=== PATIENT | female | born 1950 | race Hispanic/Latino ===

== ENCOUNTER → 2022-10-29 | Outpatient (CLI) | payer MEDICARE | END | disposition home or self-care (01) | LOC: RAH 12:18 | PROVIDERS: ATTEND Family Medicine | DX: M19.072 Primary osteoarthritis, left ankle and foot (principal); M47.815 Spondylosis without myelopathy or radiculopathy, thoracolumbar region; M77.32 Calcaneal spur, left foot; M25.772 Osteophyte, left ankle; I70.0 Atherosclerosis of aorta; M25.572 Pain in left ankle and joints of left foot; M25.472 Effusion, left ankle; J45.20 Mild intermittent asthma, uncomplicated | CPT/HCPCS: 71046; 73600 ==

== ENCOUNTER → 2024-04-09 | Outpatient (CLI) | payer MEDICARE ==
[~2024-04-09] MED LIST: IOHEXOL 350 MG/ML 100ML INFUS..BTL IV ONE
== END | disposition home or self-care (01) ==
LOC: RAH 04-08 09:53
PROVIDERS: ATTEND Family Medicine
DX: Z13.6 Encounter for screening for cardiovascular disorders (principal); N28.1 Cyst of kidney, acquired; I70.0 Atherosclerosis of aorta; K44.9 Diaphragmatic hernia without obstruction or gangrene; R93.89 Abnormal findings on diagnostic imaging of other specified body structures; Z90.49 Acquired absence of other specified parts of digestive tract
CPT/HCPCS: 74174; Q9967

== ENCOUNTER → 2024-06-11 | Outpatient (CLI) | payer MEDICARE ==
--- NOTE | 2024-06-11 11:27 | HMCIMG ---
CHEST 2VWS HISTORY: Cough COMPARISON: 10/29/2022 FINDINGS: Frontal and lateral projections of the chest were obtained. There is no acute pulmonary infiltrates or failure. The heart is not enlarged. Aortic calcifications are seen. Degenerative changes are seen of the thoracolumbar spine. IMPRESSION: 1. No acute pulmonary infiltrates.
== END | disposition home or self-care (01) ==
LOC: RAH 10:15
PROVIDERS: ATTEND Family Medicine
DX: I70.0 Atherosclerosis of aorta (principal); R05.9 Cough, unspecified; M47.815 Spondylosis without myelopathy or radiculopathy, thoracolumbar region
CPT/HCPCS: 71046

== ENCOUNTER → 2024-11-09 | Outpatient (CLI) | payer MEDICARE ==
--- NOTE | 2024-11-09 12:25 | HMCIMG ---
Exam Type: KNEE/PATELLA 1-2VWS RT Clinical Information: RIGHT KNEE PAIN Comparison: None Findings: Routine views of the knee are without evidence of fracture, dislocation, arthritic, or inflammatory change. 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 No complications are seen. There are degenerative changes of the lateral compartment. There are vascular calcifications. The joint space is well maintained and there is no effusion. IMPRESSION: Status post Freeman arthroplasty.
== END | disposition home or self-care (01) ==
LOC: RAH 11:53
PROVIDERS: ATTEND Family Medicine
DX: M25.561 Pain in right knee (principal); I70.90 Unspecified atherosclerosis; Z96.651 Presence of right artificial knee joint
CPT/HCPCS: 73560